=== PATIENT | female | born 1985 | race Caucasian/White ===

== ENCOUNTER 2017-12-07 06:26 | Emergency (ER) | payer BC ==
[2017-12-07 06:48] LABS: BASO % 0.4 % (0-6); EOS % 4.7 % (0-6); GRAN % 54.6 % (47-80); HEMATOCRIT 40.5 % (35.0-47.0); HEMOGLOBIN 13.6 gm/dl (11.6-16.0); LYMPH % 32.8 % (16-45); MEAN CELL VOLUME 94.8 fl (81-97); MEAN CORPUSCULAR HEMOGLOBIN 31.9 pg (27-33); MEAN CORPUSCULAR HGB CONC 33.6 g/dl (32-36); MEAN PLATELET VOLUME 9.8 fl (7.4-10.4); MONO % 7.5 % (0-9); PLATELET COUNT 324 K/uL (130-400); RED BLOOD COUNT 4.27 M/uL (3.80-5.40); RED CELL DISTRIBUTION WIDTH 12.4 % (11.5-14.5)
--- NOTE | 2017-12-07 07:00 | Emergency Department Record ---
History of Present Illness <NOHELIA CAMPBELL - Last Filed: 12/07/17 11:09> - General Source: Patient Mode of Arrival: Ambulatory Limitations: No limitations - History of Present Illness Initial Comments: 32 yo female presents to ED for evaluation after waking up this morning with vertigo symptoms. Patient reports nausea and vomiting x 1 this morning when attempting to sit or stand. Patient reports a history of similar symptoms previously, denies health problems at her baseline. Patient denies fevers, chills, or abdominal pain symptoms. Patient also denies ear pain or drainage symptoms. MD Complaint: Dizziness Onset/Timin -: Hour(s) Timing: Awoke with symptoms Description: Difficulty walking, Lightheadedness, Nausea, Off-balance History of Same: No Improves With: Remaining still Worsens With: Movement - [place] Coma Scale Eye Response: (4) Open spontaneously Motor Response: (6) Obeys commands Verbal Response: (5) Oriented [place] Total: 15 <ELISSA AYERS - Last Filed: 12/07/17 17:46> - General Chief Complaint: Dizziness Stated Complaint: DIZZY/NAUSEA Time Seen by Provider: 12/07/17 06:35 - Related Data Previous Rx's Medication Instructions Recorded Meclizine HCl [Antivert] 25 mg PO Q8H PRN #15 tablet 12/07/17 Ondansetron [Zofran Odt] 4 mg PO Q8H #15 tab.rapdis 12/07/17 Allergies Allergy/AdvReac Type Severity Reaction Status Date / Time No Known Drug Allergies Allergy Verified 12/07/17 06:33 Travel Screening - Travel/Exposure Within Last 30 Days Have you traveled within the last 30 days?: No - Travel Symptoms Symptom Screening: None <ELISSA AYERS - Last Filed: 12/07/17 17:46> Review of Systems Constitutional: Denies: Chills, Fever, Malaise, Night sweats Eyes: Denies: Eye discharge, Eye pain ENT: Denies: Congestion, Ear pain, Epistaxis Respiratory: Denies: Cough, Dyspnea Cardiovascular: Denies: Chest pain, Dyspnea on exertion Endocrine: Denies: Fatigue, Heat or cold intolerance Gastrointestinal: Denies: Abdominal pain, Nausea, Vomiting Genitourinary: Denies: Hematuria, Incontinence, Retention Musculoskeletal: Denies: Arthralgia, Back pain Skin: Denies: Bruising, Change in color Neurological: Reports: Vertigo. Denies: Abnormal gait, Confusion, Headache, Seizure Psychiatric: Denies: Anxiety Hematological/Lymphatic: Denies: Anemia, Blood Clots <ELISSA AYERS - Last Filed: 12/07/17 17:46> Past Medical History - SOCIAL HISTORY Smoking Status: Current every day smoker - RESPIRATORY Hx Respiratory Disorders: No - CARDIOVASCULAR Hx Cardio Disorders: No - NEURO Hx Neuro Disorders: No - GI Hx GI Disorders: No - Hx Genitourinary Disorders: No - ENDOCRINE Hx Endocrine Disorders: No - MUSCULOSKELETAL Hx Musculoskeletal Disorders: No - PSYCH Hx Psych Problems: No - HEMATOLOGY/ONCOLOGY Hx Hematology/Oncology Disorders: No <ELISSA AYERS - Last Filed: 12/07/17 17:46> Family Medical History Any Significant Family History?: Yes *Cancer Comment: Aunt Hx Dementia: Grandparents Hx Diabetes: Father, Grandparents Hx Heart Disease: Father *Stroke Comment: Aunt <ELISSA AYERS - Last Filed: 12/07/17 17:46> Physical Exam - General General Appearance: Alert, Oriented x3, Cooperative, Mild distress Limitations: No limitations - Head Head exam: Atraumatic, Normocephalic, Normal inspection Head exam detail: negative: Abrasion, Contusion, Crabtree's sign, General tenderness, Hematoma, Laceration - Eye Eye exam: Normal appearance. negative: Conjunctival injection, Periorbital swelling, Periorbital tenderness, Scleral icterus - ENT Ear exam: negative: Auricular hematoma, Auricular trauma Nasal Exam: negative: Active bleeding, Discharge, Dried blood, Foreign body Mouth exam: negative: Drooling, Laceration, Muffled voice, Tongue elevation - Neck Neck exam: Normal inspection. negative: Meningismus, Tenderness - Respiratory Respiratory exam: Normal lung sounds bilaterally. negative: Rales, Respiratory distress, Rhonchi, Stridor - Cardiovascular Cardiovascular Exam: Regular rate, Normal rhythm, Normal heart sounds - GI/Abdominal GI/Abdominal exam: Soft. negative: Rebound, Rigid, Tenderness - Rectal Rectal exam: Deferred - exam: Deferred - Extremities Extremities exam: Normal inspection. negative: Calf tenderness, Pedal edema, Tenderness - Back Back exam: Denies: CVA tenderness (R), CVA tenderness (L) - Neurological Neurological exam: Alert, Normal gait, Oriented X3 - Psychiatric Psychiatric exam: Normal affect, Normal mood - Skin Skin exam: Normal color. negative: Abrasion Type of lesion: negative: abrasion <ELISSA AYERS - Last Filed: 12/07/17 17:46> Course Vital Signs 12/07/17 06:32 Temperature 98.1 F Pulse Rate [ 89 Pulse Ox Probe] Respiratory 24 Rate Blood Pressure 123/73 [Left Arm] Pulse Ox 100 - Reevaluation(s) Reevaluation #3: 12/07/17 08:28 The UA and HCG were reviewed. Negative. The patient is greatly improved and ready for DC She is ambulatory with out any signs of impairment She has not had any neurologic signs of symptoms to suggest central process The symptoms fatigue if still and focuses. No ataxia, vision changes, speech changes, coordination changes. We discussed home care, reasons to return, off work today and follow up. Zofran and Antivert were prescribed 12/07/17 11:09 <NOHELIA CAMPBELL - Last Filed: 12/07/17 11:09> Vital Signs 12/07/17 06:32 Temperature 98.1 F Pulse Rate [ 89 Pulse Ox Probe] Respiratory 24 Rate Blood Pressure 123/73 [Left Arm] Pulse Ox 100 - Reevaluation(s) Reevaluation #1: 12/07/17 07:01 EKG: NSR 79 Normal axis, normal intervals No acute ST-T wave changes Reevaluation #2: 12/07/17 07:16 Labs reviewed and are grossly unremarkable for an acute process. Case was discussed with oncoming provider, will assume care and disposition at this time following symptomatic treatment. <ELISSA AYERS - Last Filed: 12/07/17 17:46> Medical Decision Making - Lab Data Result diagrams: 12/07/17 06:41 12/07/17 06:41 Lab Results 12/07/17 12/07/17 Range/Units 06:41 06:41 WBC 9.0 (4.2-12.2) K/uL RBC 4.27 (3.80-5.40) M/uL Hgb 13.6 (11.6-16.0) gm/dl Hct 40.5 (35.0-47.0) % MCV 94.8 (81-97) fl MCH 31.9 (27-33) pg MCHC 33.6 (32-36) g/dl RDW 12.4 (11.5-14.5) % Plt Count 324 (130-400) K/uL MPV 9.8 (7.4-10.4) fl Gran % 54.6 (47-80) % Lymphocytes % 32.8 (16-45) % Monocytes % 7.5 (0-9) % Eosinophils % 4.7 (0-6) % Basophils % 0.4 (0-6) % Sodium 139 (136-145) mmol/L Potassium 3.7 (3.4-4.5) mmol/L Chloride 102 (98-107) mmol/L Carbon Dioxide 25.0 (22-29) mmol/L Anion Gap 12.0 (7-16) BUN 14 (6-20) mg/dL Creatinine 0.5 (0.5-0.9) mg/dL Estimated GFR > 60 mL/min Random Glucose 108 (74-109) mg/dL Calcium 8.8 (8.6-10.0) mg/dL Total Bilirubin 0.30 (0.2-1.0) mg/dL AST 16 (10.0-35.0) U/L ALT 24 (<33) U/L Alkaline Phosphatase 82 (35-104) U/L Total Protein 6.7 (6.6-8.7) g/dL Albumin 4.1 (4.0-5.0) g/dL Globulin 2.6 (1.4-4.8) gm/dL Albumin/Globulin Ratio 1.6 (1.1-1.8) <NOHELIA CAMPBELL - Last Filed: 12/07/17 11:09> - Lab Data Result diagrams: 12/07/17 06:41 12/07/17 06:41 Lab Results 12/07/17 Range/Units 06:41 WBC 9.0 (4.2-12.2) K/uL RBC 4.27 (3.80-5.40) M/uL Hgb 13.6 (11.6-16.0) gm/dl Hct 40.5 (35.0-47.0) % MCV 94.8 (81-97) fl MCH 31.9 (27-33) pg MCHC 33.6 (32-36) g/dl RDW 12.4 (11.5-14.5) % Plt Count 324 (130-400) K/uL MPV 9.8 (7.4-10.4) fl Gran % 54.6 (47-80) % Lymphocytes % 32.8 (16-45) % Monocytes % 7.5 (0-9) % Eosinophils % 4.7 (0-6) % Basophils % 0.4 (0-6) % <ELISSA AYERS - Last Filed: 12/07/17 17:46> Disposition Time of Disposition: 08:33 <NOHELIA CAMPBELL - Last Filed: 12/07/17 11:09> Disposition: Discharge <ELISSA AYERS - Last Filed: 12/07/17 17:46> Clinical Impression: Vertigo Disposition: Home, Self-Care Condition: (2) Stable Instructions: Vertigo (ED) Additional Instructions: Return to ED if your symptoms worsen or if you have any concerns. Antivert as directed. Follow-up with your family doctor in 3-5 days as directed. Prescriptions: Meclizine HCl [Antivert] 25 mg PO Q8H PRN #15 tablet PRN Reason: Dizziness Ondansetron [Zofran Odt] 4 mg PO Q8H #15 tab.rapdis Forms: Patient Portal Access Quality - Blood Pressure Screening Does Patient Have Any of the Following: No Blood Pressure Classification: Normal BP Reading Systolic Measurement: 102 Diastolic Measurement: 59 Screening for High Blood Pressure: < Normal BP, F/U Not Required > [G8783] <NOHELIA CAMPBELL - Last Filed: 12/07/17 11:09> - Quality Measures Quality Measures: N/A - Blood Pressure Screening Does Patient Have Any of the Following: No Blood Pressure Classification: Normal BP Reading Systolic Measurement: 102 Diastolic Measurement: 59 Screening for High Blood Pressure: < Normal BP, F/U Not Required > [G8783] <ELISSA AYERS - Last Filed: 12/07/17 17:46>
[2017-12-07] MEDS: 0.9 % SODIUM CHLORIDE 1000ML 500 ML IV SCH (07:05)
[2017-12-07 07:06] LABS: BLOOD UREA NITROGEN 14 mg/dL (6-20); CREATININE 0.5 mg/dL (0.5-0.9); EST GLOMERULAR FILTRATION RATE > 60 mL/min
[2017-12-07] MEDS: ONDANSETRON HCL IV 4 MG/2 ML VIAL IVP ONE (07:06)
[2017-12-07 07:07] LABS: TOTAL PROTEIN 6.7 g/dL (6.6-8.7)
[2017-12-07] MEDS: MECLIZINE 25 MG TABLET PO ONE (07:07)
[2017-12-07 07:09] LABS: GLUCOSE,RANDOM 108 mg/dL (74-109)
[2017-12-07 07:11] LABS: ALB/GLOB RATIO 1.6 (1.1-1.8); ALBUMIN 4.1 g/dL (4.0-5.0); ALKALINE PHOSPHATASE 82 U/L (35-104); ALT/SGPT 24 U/L (<33); AST/SGOT 16 U/L (10.0-35.0)
[2017-12-07 08:20] LABS: URINE APPEARANCE CLEAR; URINE BILIRUBIN NEGATIVE (NEGATIVE); URINE BLOOD NEGATIVE (NEGATIVE); URINE COLOR YELLOW; URINE GLUCOSE (UA) NEGATIVE (NEGATIVE); URINE KETONE NEGATIVE (NEGATIVE); URINE LEUKOCYTE ESTERASE NEGATIVE (NEGATIVE); URINE NITRITE NEGATIVE (NEGATIVE); URINE PROTEIN NEGATIVE (NEGATIVE); URINE UROBILINOGEN 0.2 E.U./dL (0.20 - 1.00)
[2017-12-07 08:23] LABS: HCG,QUALITATIVE URINE NEGATIVE (NEGATIVE)
== END 2017-12-07 08:45 | disposition home or self-care (01) ==
LOC: ER 06:26
DX: R42 Dizziness and giddiness (principal); R11.2 Nausea with vomiting, unspecified; R26.2 Difficulty in walking, not elsewhere classified; R05 Cough; F17.210 Nicotine dependence, cigarettes, uncomplicated
CPT/HCPCS: 80053; 81003; 81025; 85025; 93005; 93010; 96361; 96374; 99284; J2405; J7030